=== PATIENT | female | born 1940 | race Caucasian/White ===

== ENCOUNTER → 2018-02-04 06:53 | Day surgery (SDC) | payer MEDICARE, SELFPAY ==
[2018-02-04 07:19] VITALS: BP 141/81; PULSE 67; RESP 18; TEMP 36.1; O2SAT 98
--- NOTE | 2018-02-04 07:44 | PM.HP.1 ---
History of Present Illness Date Patient Seen: 02/04/18 Time Patient Seen: 07:44 Chief complaint: [id number] Narrative: Nita Laureano is a 77 year old female who presents for colorectal screening. It has been many years since her last examination. She also completed EGD in 2012 for dysphagia and reflux. Findings were consistent with mild esophagitis but no German's esophagus or intestinal metaplasia. She has had recurrence issues with dysphagia. No nausea or vomiting. No abdominal pain. No unexpected weight loss. She denies change in bowel habits, constipation, diarrhea, melena, hematochezia, or bright red blood per rectum. [facility] Social History household members: none Meds Home Medications Medication Instructions Recorded Confirmed Type pravastatin 20 mg PO HS #0 03/22/12 History pantoprazole [Protonix] 40 mg PO EVERY OTHER DAY #0 07/04/12 History losartan 100 mg PO QDAY #0 09/25/17 History ranitidine HCl 150 mg PO EVERY OTHER DAY #0 09/29/17 History Generic Name Dose Route Start Last Admin Trade Name Freq PRN Reason Stop Dose Admin Flumazenil 0.2 mg 02/04/18 07:39 Romazicon IV PRN PRN Benzodiazepine Reversal Sodium Chloride 1,000 mls @ 200 mls/hr 02/04/18 07:45 Normal Saline 0.9% IV CONT ARIELLE Naloxone HCl 0.2 mg 02/04/18 07:39 Narcan IV Q2MIN PRN Opiate Reversal Review of Systems Review of Systems All systems reviewed & are unremarkable except as noted in HPI and below Exam Narrative Exam Narrative: Well-nourished well-developed thin elderly female in no acute distress. Alert oriented x3. Sclera nonicteric Neck is supple Regular rate and rhythm Abdomen soft, nondistended, nontender Extremities show no clubbing, cyanosis, or edema Objective Labs Labs: No recent laboratory or radiographic studies for review. Assessment & Plan Plan: Plan: 77-year-old female with dysphagia, reflux, and requirements for colorectal screening given the time interval since her last examination. I have recommended EGD and colonoscopy today. Technical details of the procedures were discussed. Risks, benefits, alternatives were explained. Risks including but not limited to sedation, aspiration, bleeding, pain, missed lesion, incomplete examination, need for further radiographic studies, colonic perforation, esophageal perforation, gastric perforation, duodenal perforation, need for major thoracic surgery, need for major abdominal surgery, and all attendant risks of major surgery were discussed in detail. All questions were answered to her satisfaction, and she voiced understanding. Consent was placed on the chart. We will proceed as above.
--- NOTE | 2018-02-04 07:50 | P.HP_ITS ---
History of Present Illness Date Patient Seen: 02/04/18 Time Patient Seen: 07:44 Chief complaint: [id number] Narrative: Nita Laureano is a 77 year old female who presents for colorectal screening. It has been many years since her last examination. She also completed EGD in 2012 for dysphagia and reflux. Findings were consistent with mild esophagitis but no German's esophagus or intestinal metaplasia. She has had recurrence issues with dysphagia. No nausea or vomiting. No abdominal pain. No unexpected weight loss. She denies change in bowel habits, constipation, diarrhea, melena, hematochezia, or bright red blood per rectum. [facility] Social History household members: none Meds Home Medications Medication Instructions Recorded Confirmed Type pravastatin 20 mg PO HS #0 03/22/12 History pantoprazole [Protonix] 40 mg PO EVERY OTHER DAY #0 07/04/12 History losartan 100 mg PO QDAY #0 09/25/17 History ranitidine HCl 150 mg PO EVERY OTHER DAY #0 09/29/17 History Generic Name Dose Route Start Last Admin Trade Name Freq PRN Reason Stop Dose Admin Flumazenil 0.2 mg 02/04/18 07:39 Romazicon IV PRN PRN Benzodiazepine Reversal Sodium Chloride 1,000 mls @ 200 mls/hr 02/04/18 07:45 Normal Saline 0.9% IV CONT ARIELLE Naloxone HCl 0.2 mg 02/04/18 07:39 Narcan IV Q2MIN PRN Opiate Reversal Review of Systems Review of Systems All systems reviewed & are unremarkable except as noted in HPI and below Exam Narrative Exam Narrative: Well-nourished well-developed thin elderly female in no acute distress. Alert oriented x3. Sclera nonicteric Neck is supple Regular rate and rhythm Abdomen soft, nondistended, nontender Extremities show no clubbing, cyanosis, or edema Objective Labs Labs: No recent laboratory or radiographic studies for review. Assessment & Plan Plan: Plan: 77-year-old female with dysphagia, reflux, and requirements for colorectal screening given the time interval since her last examination. I have recommended EGD and colonoscopy today. Technical details of the procedures were discussed. Risks, benefits, alternatives were explained. Risks including but not limited to sedation, aspiration, bleeding, pain, missed lesion, incomplete examination, need for further radiographic studies, colonic perforation, esophageal perforation, gastric perforation, duodenal perforation, need for major thoracic surgery, need for major abdominal surgery, and all attendant risks of major surgery were discussed in detail. All questions were answered to her satisfaction, and she voiced understanding. Consent was placed on the chart. We will proceed as above.
--- NOTE | 2018-02-04 07:50 | PM.PREOP ---
Pre-operative Note Interval Note Pre-op Check: History & Physical Reviewed, Exam Performed and History & Physical exam performed today H&P completed within 30 days and has changed as indicated here:: H& P just dictated 5 min ago and on the chart. ASA Class (for procedural sedation): II (Hypertension)
[2018-02-04] MEDS: SODIUM CHLORIDE 0.9% 1,000 ML 200 ML IV (08:02)
[2018-02-04] MEDS: TETRACAINE/BENZOCAINE/BUTAMBEN (CETACAINE) BOTTLE 1 SPRAY TOP (08:06)
[2018-02-04] MEDS: LIDOCAINE 4% SOLN 50 ML 20 ML TOP (08:06)
[2018-02-04] MEDS: MIDAZOLAM 5 MG/5 ML VIAL IV (08:08)
--- NOTE | 2018-02-04 08:43 | PM.OP.ENDO ---
Operative Date/Time/Diagnoses - Date of procedure: 02/04/18 Time of procedure: 08:43 Pre-op diagnosis: Dysphagia and colorectal screening Post-op diagnosis: same Procedure & Clinicians Study performed: 1. Esophagogastroduodenoscopy with cold forceps biopsies 2. Colonoscopy 3. Sedation for surgeon Same procedure as scheduled: Yes Indications: 77-year-old female with recent dysphagia, reflux disease, and requirements for colorectal screening given the time interval since her last exam. She was recommended to undergo EGD and colonoscopy. Surgeon: Arya Garcia Procedure Notes SCOAP/Timeout: 08:07 Procedure in detail: After obtaining informed consent, the patient was brought to the GI suite and placed in the left lateral decubitus position on the examination table. After placement of appropriate monitors, the patient was given incremental doses of Versed and Fentanyl until an appropriate level of sedation was achieved. A time out was held per SCOAP protocol. A bite block was gently placed between the patient's teeth. The endoscope was lubricated and then passed into the patient's posterior oropharynx. The esophagus was cannulated under direct vision and the scope was passed to the second portion of the duodenum without difficulty. The scope was then withdrawn with careful examination of all areas of the upper GI tract and mucosa. In the stomach, the instrument was retroflexed and the GE junction examined. The scope was straightened and the procedure continued with examination of the remainder of the upper GI tract. Findings are noted above. Air was aspirated from the stomach and the endoscope gently removed from the esophagus. A digital rectal examination was performed and did not reveal any masses or obstructing lesions. The colonoscope was gently passed into the patient's anus and the entire colon navigated to the level of the cecum with minimal difficulty. Once in the cecum, the scope was withdrawn being sure to go before and beyond all mucosal folds and prominences and get an excellent examination. The findings are noted above. At the level of the rectal vault, the scope was retroflexed and the internal anal canal was examined. The scope was straightened and air aspirated from the colon. The instrument was removed from the patient's body and the procedure was concluded. The patient was allowed to awaken from sedation without difficulty and taken to the post-anesthesia care unit in good condition. Scope withdrawal time: 07:29 Sedation minutes: 31 Findings: diverticulosis, gastritis, hiatal hernia, stricture (Schatzki's ring at the gastroesophageal junction. Not clinically significant. No dilatation performed.) and other findings (Esophagitis) Specimen(s): other (1. Antral biopsies 2. Gastroesophageal junction biopsies) Complications: none Recommendations: High fiber diet, Continue medication(s), Will call with biopsy results and Other recommendation (No further colonoscopy is indicated in the absence of any new symptoms) Plan for aftercare: 1. Discharge to home 2. Await biopsy results 3. Continue current medications Follow up: as needed Disposition: PACU
[2018-02-04] MEDS: fentaNYL 250 MCG/5 ML INJ IV (08:44)
[2018-02-04 08:49] VITALS: BP 95/54; PULSE 56; RESP 15; TEMP 35.8; O2SAT 95
[2018-02-04 08:53] VITALS: BP 92/50; PULSE 56; RESP 15; O2SAT 94
[2018-02-04 08:56] VITALS: BP 87/52; PULSE 68; RESP 16; O2SAT 95
[2018-02-04 09:02] VITALS: BP 91/53; PULSE 68; RESP 16; TEMP 35.8; O2SAT 95
[2018-02-04 09:07] VITALS: BP 91/58; PULSE 60; TEMP 36.2; O2SAT 95
== END | disposition home or self-care (01) ==
PROVIDERS: Family Provider Internal Medicine; Visit Provider Surgery
PROC: 0DJD8ZZ Inspection of Lower Intestinal Tract, Via Natural or Artificial Opening Endoscopic (ICD-10-PCS; CPT 45378; principal; 2018-02-04 07:45)
PROC: 0DJ08ZZ Inspection of Upper Intestinal Tract, Via Natural or Artificial Opening Endoscopic (ICD-10-PCS; CPT 43235; 2018-02-04 07:45)
DX: Z12.11 Encounter for screening for malignant neoplasm of colon (principal); R13.10 Dysphagia, unspecified; K57.30 Diverticulosis of large intestine without perforation or abscess without bleeding; K29.70 Gastritis, unspecified, without bleeding; K44.9 Diaphragmatic hernia without obstruction or gangrene; K22.2 Esophageal obstruction; K21.0 Gastro-esophageal reflux disease with esophagitis
CPT/HCPCS: 43239; G0121; 45378; 88305; 99152; 99153; J2250; J3010

== ENCOUNTER → 2018-09-02 13:49 | Outpatient (CLI) | payer MEDICARE, SELFPAY ==
--- NOTE | 2018-09-02 | DI.RAD.S_ITS ---
This blank DEXA report has been sent in error by the PACS system. The correct and complete report will be forthcoming in 1-2 days. Thank you for your patience and understanding. Dictated by: Steve Flores M.D. on 09/02/2018 at 14:32 Approved by: Steve Flores M.D. on 09/02/2018 at 14:33
== END ==
PROVIDERS: PCP Internal Medicine; Visit Provider Internal Medicine
DX: M85.88 Other specified disorders of bone density and structure, other site (principal); Z78.0 Asymptomatic menopausal state; Z82.62 Family history of osteoporosis; Z90.722 Acquired absence of ovaries, bilateral; Z87.891 Personal history of nicotine dependence
CPT/HCPCS: 77080

== ENCOUNTER → 2018-09-18 10:30 | Outpatient (CLI) | payer MEDICARE, SELFPAY ==
--- NOTE | 2018-09-18 | DI.MG.S_ITS ---
BILATERAL DIGITAL SCREENING MAMMOGRAM 3D/2D WITH CAD: 09/18/2018 CLINICAL: Routine screening. Comparison is made to exams dated: 09/09/2017 mammogram - [facility], 07/11/2016 mammogram, and 07/10/2015 mammogram - [facility]. The tissue of both breasts is heterogeneously dense. This may lower the sensitivity of mammography. Current study was also evaluated with a Computer Aided Detection (CAD) system. There are benign post operative findings in the left breast. No significant masses, calcifications, or other findings are seen in either breast. There has been no significant interval change. IMPRESSION: There is no mammographic evidence of malignancy. A 1 year screening mammogram is recommended. This exam was interpreted at Station ID: [id number]. NOTE: For mammograms, a report in lay terms will be sent to the patient. Approximately 15% of breast malignancies will not be visualized mammographically. In the management of a palpable breast mass, a negative mammogram must not discourage biopsy of a clinically suspicious lesion. Electronically Signed By: Bertram yarbrough/axel:09/20/2018 18:13:55 copy to: Marilu Mccoy letter sent: Normal Exam ACR BI-RADS Category 2: Benign Finding(s) 3342F
== END ==
PROVIDERS: PCP Internal Medicine; Visit Provider Internal Medicine
DX: Z12.31 Encounter for screening mammogram for malignant neoplasm of breast (principal)
CPT/HCPCS: 77063; 77067

== ENCOUNTER → 2019-09-20 09:52 | Outpatient (CLI) | payer MEDICARE, SELFPAY ==
--- NOTE | 2019-09-20 | DI.MG.S_ITS ---
BILATERAL DIGITAL SCREENING MAMMOGRAM 3D/2D WITH CAD: 09/20/2019 CLINICAL: Routine screening. Comparison is made to exams [facility]: [facility], 07/11/2016 mammogram [facility], and 09/09/2017 [facility]. There are scattered fibroglandular elements in both breasts. Current study was also evaluated with a Computer Aided Detection (CAD) system. There are benign post operative findings in the left breast. No significant masses, calcifications, or other findings are seen in either breast. There has been no significant interval change. IMPRESSION: There is no mammographic evidence of malignancy. A 1 year screening mammogram is recommended. This exam was interpreted at Station ID: [id number]. NOTE: For mammograms, a report in lay terms will be sent to the patient. Approximately 15% of breast malignancies will not be visualized mammographically. In the management of a palpable breast mass, a negative mammogram must not discourage biopsy of a clinically suspicious lesion. Electronically Signed By: Jose costa/axel:09/20/2019 14:17:32 copy to: Marilu Mccoy letter sent: Normal Exam ACR BI-RADS Category 2: Benign Finding(s) 3342F
== END ==
PROVIDERS: PCP Internal Medicine; Visit Provider Internal Medicine
DX: Z12.31 Encounter for screening mammogram for malignant neoplasm of breast (principal)
CPT/HCPCS: 77063; 77067

== ENCOUNTER → 2021-02-27 12:18 | Outpatient (CLI) | payer OTHER, SELFPAY | PROVIDERS: PCP Internal Medicine; Referring Provider Internal Medicine; Visit Provider Internal Medicine | DX: Z78.0 Asymptomatic menopausal state (principal) | CPT/HCPCS: 77080 ==